=== PATIENT | female | born 1955 | race Two or more races ===

== ENCOUNTER 2023-12-22 08:27 | Emergency (ER) | payer OTHER ==
[2023-12-22 08:34] VITALS: TEMP 98.2
[2023-12-22 10:04] LABS: BASO % 0.5 % (0-2.0); EOS % 2.1 % (0-4.5); HEMATOCRIT 37.7 % (32.4-45.2); HEMOGLOBIN 12.4 GM/dL (10.7-15.3); LYMPH % 25.7 % (8-40); MCH 30.8 pg (25.7-33.7); MCHC 32.8 g/dl (32.0-36.0); MEAN CELL VOLUME 93.9 fl (80-96); MEAN PLT VOLUME 9.4 fl (7.5-11.1); MONO % 8.4 % (3.8-10.2); NEUT % 63.3 % (42.8-82.8); PLATELET COUNT 183 10^3/uL (134-434); RBC 4.02 M/mm3 (3.60-5.2); RDW 13.9 % (11.6-15.6); WHITE BLOOD COUNT 7.3 K/mm3 (4.0-10.0)
[2023-12-22 10:15] LABS: ACTIVATED PTT 40.3 SECONDS (25.2-36.5); PROTHROMBIN TIME (PATIENT) 11.3 SEC (9.7-13.0)
[2023-12-22 11:12] LABS: CALCIUM 10.2 mg/dL (8.5-10.1)
[2023-12-22 11:14] LABS: ALBUMIN 3.5 g/dl (3.4-5.0); BLOOD UREA NITROGEN 11.8 mg/dL (7-18)
[2023-12-22 11:17] LABS: CREATININE 0.6 mg/dL (0.55-1.3)
[2023-12-22 11:18] LABS: BILIRUBIN,TOTAL 0.6 mg/dL (0.2-1); TOT PROT 7.3 g/dl (6.4-8.2)
[2023-12-22 12:19] VITALS: BP 132/48; PULSE 62; RESP 18
== END 2023-12-22 12:19 | disposition home or self-care (01) ==
LOC: JER 08:27
DX: R53.1 Weakness (principal)
CPT/HCPCS: 36415; 70450-TC; 70551-TC; 80053; 80061; 82550; 82553; 82962; 83036; 84484; 85025; 85610; 85730; 86850; 86900; 86901; 93005; 93010; 93306-TC; 99285-25